=== PATIENT | female | born 1975 | race Caucasian/White ===

== ENCOUNTER → 2020-04-14 18:16 | Outpatient (CLI) | payer MEDICAID, SELFPAY ==
[2020-04-14 19:02] LABS: Basophils # 0.1 K/mm3 (0-0.2); Basophils % 0.5 % (0.1-2.0); Eosinophils # 0.3 K/mm3 (0.0-0.4); Eosinophils % 2.9 % (0.1-12.0); Hematocrit 44.7 % (37.0-47.0); Hemoglobin 15.4 g/dL (12.2-16.2); Lymphocytes # 2.3 K/mm3 (0.7-4.5); Lymphocytes % 19.3 % (10-50); Mean Corpuscular HGB Conc 34.5 g/dL (31.8-35.4); Mean Corpuscular Hemoglobin 30.1 pg (27.0-31.2); Mean Corpuscular Volume 87.1 fl (81-99); Monocytes # 0.5 K/mm3 (0.1-1.0); Monocytes % 4.2 % (1.7-9.3); Neutrophils # 8.6 K/mm3 (1.8-7.8); Neutrophils % 73.2 % (37.0-80.0); Platelet Count 259 K/mm3 (142-424); Red Blood Count 5.14 M/mm3 (4.20-5.40); Red Cell Distribution Width 14.6 % (11.5-17.5); White Blood Count 11.7 K/mm3 (4.8-10.8)
[2020-04-14 19:04] LABS: Chloride 106 mmol/L (98-107); Potassium 3.9 mmoL/L (3.5-5.1); Sodium 139 mmol/L (136-145)
[2020-04-14 19:06] LABS: Blood Urea Nitrogen 13 mg/dl (7-17); Estimated Glomerular Filt Rate 78 ml/min (>60); GFR (African American) 95 ML/MIN (>60)
[2020-04-14 19:07] LABS: Alanine Aminotransferase 22 U/L (12-78); Albumin Level 3.8 g/dl (3.5-5.0); Albumin/Globulin Ratio 1.3 (1.1-1.8); Alkaline Phosphatase 77 U/L (38-126); Anion Gap 11.9 mEq/L (5-15); Aspartate Amino Transferase 29 U/L (14-36); Bilirubin,Total 0.6 mg/dl (0.2-1.3); Carbon Dioxide 25 mmol/L (22.0-30.0); Cholesterol 177 mg/dl (140-200); Globulin 2.9 g/dL (1.3-3.2); Total Protein,Serum 6.7 g/dl (6.3-8.2); Triglycerides 238 mg/dl (30-150); VLDL Cholesterol 48 mg/dL (0-40)
[2020-04-14 19:08] LABS: Calcium 9.1 mg/dl (8.4-10.2); Chol/HDL Ratio 4.8 (1-3.5); Glucose 122 mg/dl (74-100); HDL Cholesterol 37 mg/dl (40-60)
[2020-04-14 19:20] LABS: Direct LDL Cholesterol 107.79 mg/dL (100-129)
[2020-04-14 19:25] LABS: T4 (Thyroxine) 9.4 ug/dl (5.53-11.0)
[2020-04-14 19:38] LABS: Thyroid Stimulating Hormone 2.58 uIU/mL (0.465-4.68)
[2020-04-16 13:47] LABS: Hemoglobin A1C 5.4 % (4.0-6.0)
[2020-04-21 15:18] LABS: 1,25 Dihydroxy Vitamin D 37 pg/mL (.); 1,25-Dihydroxy, Vitamin D-2 21 pg/mL (.); 1,25-Dihydroxy, Vitamin D-3 16 pg/mL (.)
== END ==
PROVIDERS: Physician Assistant; Visit Provider Emergency Medicine
DX: I10 Essential (primary) hypertension (principal); R73.09 Other abnormal glucose
CPT/HCPCS: 80053; 80061; 82652; 83036; 84436; 84443; 85025

== ENCOUNTER → 2020-07-14 12:34 | Outpatient (CLI) | payer MEDICAID, SELFPAY ==
--- NOTE | 2020-07-14 12:38 | XR_ITS ---
PROCEDURE: XR KNEE LT 4V CLINICAL INDICATION: left knee pain COMPARISON: No exams were available for comparison FINDINGS: No fracture or dislocation. No lytic or blastic change. There is normal mineralization. Mild osteoarthritic changes are present involving all 3 compartments including spurring of the tibial spines. A lucency is present at the tip of the medial tibial spine and could be due to nondisplaced fracture or could be artifact. Other findings:None. IMPRESSION: Mild osteoarthritis with a lucency present at the tip of the medial tibial spine osteophyte which could be due to an underlying fracture versus artifact. Dictated by: Ammon Montez MD 07/14/2020 16:54 Ammon Montez MD in [place] 07/14/2020 16:54
--- NOTE | 2020-07-14 12:38 | XR_ITS ---
PROCEDURE: XR KNEE RT 4V CLINICAL INDICATION: right knee pain COMPARISON: No exams were available for comparison FINDINGS: No fracture or dislocation. No lytic or blastic change. There is normal mineralization. There are mild osteoarthritic changes involving all 3 compartments greatest at the medial compartment and patellofemoral joint. Small bone island is present along the proximal tibia Other findings:None. IMPRESSION: Mild osteoarthritis Dictated by: Ammon Montez MD 07/14/2020 16:52 Ammon Montez MD in [place] 07/14/2020 16:52
== END ==
PROVIDERS: PCP Emergency Medicine; Visit Provider Orthopaedic Surgery
DX: M25.562 Pain in left knee (principal); M25.561 Pain in right knee
CPT/HCPCS: 73564

== ENCOUNTER → 2020-08-21 13:34 | Outpatient (CLI) | payer MEDICAID, SELFPAY ==
--- NOTE | 2020-08-21 13:34 | MR_ITS ---
PROCEDURE: MR KNEE RT WO CON CLINICAL INDICATION: right knee injury/ evaluate for meniscal tear Medial sided knee pain twisting injury with pain COMPARISON: CR XR KNEE RT 4V from 07/14/2020 TECHNIQUE: Routine multiplanar multi echo sequences are performed without gadolinium enhancement. FINDINGS: The cruciate ligaments appear intact. The there is thickening of the proximal aspect of the medial collateral ligament with increased T2 signal on both sides of the MCL consistent with sprain or partial tear. A complete tear with ligament retraction is not present. Increased T2 signal involves the medial tibial plateau and may be due to contusion or inflammatory changes from osteoarthritis. There are moderate osteoarthritic changes involving all 3 compartments. Knee joint effusion is also present. The lateral meniscus has an unremarkable appearance. There is some increased T2 signal of the medial meniscus posterior horn but no evidence of meniscal tear. The medial meniscus is extruded somewhat medially with decrease in the medial joint space. The patellar tendon and quadriceps tendon have an unremarkable appearance. There is a moderate size knee joint effusion with a Collado's cyst present measuring up to 4.5 by 3 cm. There is thinning of the patellar cartilage consistent with chondromalacia patella. IMPRESSION: 1. Sprain versus partial tear of the medial collateral ligament. 2. Bone bruise versus bone marrow edema from inflammatory change at the medial tibial plateau area 3. Moderate osteoarthritic changes with knee joint effusion including Collado's cyst and chondromalacia patella 4. No evidence of meniscal tear or cruciate ligament tear Dictated by: Ammon Montez MD 08/24/2020 09:27 Ammon Montez MD in [place] 08/24/2020 09:27
== END ==
PROVIDERS: PCP Emergency Medicine; Visit Provider Orthopaedic Surgery
DX: S89.91XA Unspecified injury of right lower leg, initial encounter (principal)
CPT/HCPCS: 73721

== ENCOUNTER 2020-09-15 13:53 | Outpatient (RCR) | payer MEDICAID, SELFPAY | END 2020-09-15 14:20 | disposition home or self-care (01) | LOC: PT 13:53 | PROVIDERS: Visit Provider Orthopaedic Surgery | DX: M25.561 Pain in right knee (principal) ==